=== PATIENT | female | born 1940 | race Hispanic/Latino ===

== ENCOUNTER 2016-12-22 11:05 | Day surgery (SDC) | payer MEDICARE ==
[2016-12-22] MEDS ORDERED: MYDRIACYL ONE (12:17)
[2016-12-22] MEDS ORDERED: NEOFRIN ONE (12:18)
[2016-12-22] MEDS ORDERED: IOPIDINE ONE (12:18)
[2016-12-22] MEDS ORDERED: MYDRIACYL OD ONE (12:22)
[2016-12-22] MEDS ORDERED: IOPIDINE OD ONE (12:22)
[2016-12-22] MEDS ORDERED: NEOFRIN OD ONE (12:22)
[2016-12-22 12:35] VITALS: BP 140/70
== END 2016-12-22 11:06 | disposition home or self-care (01) ==
LOC: OR 11:05
PROVIDERS: ATTEND Specialist
DX: H26.491 Other secondary cataract, right eye (principal); Z79.899 Other long term (current) drug therapy
CPT/HCPCS: 82962